=== PATIENT | female | born 1950 | race Caucasian/White ===

== ENCOUNTER 2017-07-25 05:28 | Inpatient (IN) | payer OTHER ==
[2017-07-18 12:20] LABS: HEMATOCRIT 36.7 % (37.0-47.0); HEMOGLOBIN 12.7 gm/dL (12.0-15.0); MCH 30.7 pg (26.0-34.0); MCHC 34.5 g/dL (28.0-37.0); MCV 89.2 fL (80.0-100.0); RBC 4.12 mil/uL (4.20-5.00); RDW 12.9 % (10.5-14.5); WBC 8.2 thou/uL (4.0-11.0)
[2017-07-18 12:22] LABS: URINE BILIRUBIN NEGATIVE (Negative); URINE BLOOD NEGATIVE (Negative); URINE CLARITY CLEAR; URINE COLOR YELLOW; URINE GLUCOSE-RANDOM* NEGATIVE (Negative); URINE KETONES NEGATIVE (Negative); URINE LEUKOCYTES-REFLEX NEGATIVE (Negative); URINE NITRITE-REFLEX NEGATIVE (Negative); URINE PROTEIN (DIPSTICK) NEGATIVE (Negative); URINE SPECIFIC GRAVITY <= 1.005 (1.005-1.035); URINE UROBILINOGEN 0.2 E.U./dl (0.2-1.0)
[2017-07-18 12:30] LABS: ALBUMIN 4.1 g/dL (3.4-5.0); CALCIUM 9.8 mg/dL (8.5-10.1); CREATININE 0.6 mg/dL (0.6-1.0); POTASSIUM 4.3 mmol/L (3.5-5.1); PROTIME 9.7 Seconds (9.3-11.4)
[2017-07-25] VITALS (7 sets, daily range): BP systolic 126–158; BP diastolic 65–83
[~2017-07-25] VITALS: Ht 160 cm; Wt 63.5 kg
--- NOTE | ~2017-07-25 | O ---
[facility] [place] [address] OPERATIVE REPORT Name: HALLIE GONZALEZ Room #: 412-P [facility] IN M.R.#: [id number] Admission: 07/25/17 Attend Phys: Edmundo Pinzon MD Discharge: 07/27/17 Date of : 46 Report #: [id number] THIS REPORT FOR: //name// CC: Martha Rick Pinzon DATE OF SERVICE: 07/25/2017 PREOPERATIVE DIAGNOSIS: Right hip osteoarthritis. POSTOPERATIVE DIAGNOSIS: Right hip osteoarthritis. PROCEDURE: Right total hip arthroplasty. SURGEON: Edmundo Pinzon MD SOCIAL MEDIA DEVELOPER: Aubrie Tariq PA-C ANESTHESIA: General endotracheal. INDICATION FOR ASSISTANCE: Throughout the case extensive retraction and manipulation of the hip was required including reduction and dislocation of the hip. This was afforded to me by my diagnostic assistant. IMPLANTS: [employer] size 12 high offset Synergy press fit stem, a size 54 R3 acetabular cup with 1 acetabular screw, size 36+4 cobalt chrome head and 1 Accord cable. ESTIMATED BLOOD LOSS: 150 mL. COMPLICATIONS: Include intraoperative greater trochanter fracture fixed with the Accord cable. CONDITION UPON LEAVING THE OPERATING ROOM: Stable. INDICATIONS FOR PROCEDURE: The patient is a 66-year-old female with severe right hip osteoarthritis. She had failed conservative treatment for this and after discussion with her, she elected for right total hip arthroplasty. DESCRIPTION OF PROCEDURE: Risks, benefits, alternatives, complications were discussed in detail with the patient including but not limited to risk of anesthesia, risk of damage to nerves, arteries, blood vessels, risk for infection, bleeding, risk for continued hip pain, leg length discrepancy, instability and need for reoperation. Informed consent was obtained from the patient. Right hip was appropriately marked in the preoperative holding area. She was brought to the operating room and placed in supine position on the [address] [address] OPERATIVE REPORT Name: HALLIE GONZALEZ Room #: 412-P [facility] IN M.R.#: [id number] Admission: 07/25/17 Attend Phys: Edmundo Pinzon MD Discharge: 07/27/17 Date of : 46 Report #: [id number] operating room table. General endotracheal anesthesia was induced without complication. IV Ancef was given for preoperative antibiotic. She was placed in the left lateral decubitus position with the right hip uppermost. Right hip and lower extremity were prepped and draped in normal sterile fashion. Timeout was performed properly identifying the patient and procedure as well as the instrumentation and implants. All in the operating room were in agreement. Standard posterior approach to the hip was made with 10 blade through the skin. Dissection was taken down to the fascia with Bovie cautery. Feliciano elevator was used to clean the fascia. A fresh #10 blade was used to make a fascial incision. This was taken proximally and distally with curved De La Rosa scissor. Charnley retractor was placed. Trochanteric bursa was taken down with Bovie. Piriformis tendon was identified, tagged and taken down with Bovie. Capsulotomy was made and capsular ends were tagged for later repair. Hip was dislocated. There was severe osteoarthritic change of the femoral head with complete loss of articular cartilage. Femoral neck cut was made 1 cm proximal to lesser trochanter based on preoperative templating. Femoral head was removed. Deep acetabular retractors were placed and the labrum was removed sharply. Pulvinar was removed with Bovie cautery. Acetabulum was then sequentially reamed up to a size 54, at which point there was excellent bleeding cancellous bone. A size 53 trial was placed to have a good fit. A final size 54 R3 acetabular cup was placed. One acetabular screw was placed for backup fixation. Polyethylene liner for 36 head was placed. Attention was turned to the femur. This was reamed and broached up to a size 12 at which point a size 12 broach was stable. This was trialed with a high offset neck and a 36+0 head. Hip was reduced, taken through range of motion, found to be stable, found to have short leg length on the right compared to the left and it was felt this could be made up for in the final implant. Broach was removed and a size 12 high offset Synergy stem was placed. Upon final seating of the stent, there was noted to be a small crack in the greater trochanter. The stem was removed and a single Accord cable was placed around the proximal femur and tightened. The stem was then placed back down and seated. This was trialed with a 36+4 head. Hip was reduced, taken through range of motion, found to be stable, found to have equal leg lengths. Hip dislocated again and a final size 36+4 cobalt chrome head was placed. Hip was reduced, taken through range of motion, found to be stable, found to have equal leg lengths. Wound was thoroughly irrigated with normal saline. Periarticular injection consisting of morphine, ropivacaine, epinephrine and Toradol was placed in the hip joint capsule. A gram of vancomycin was placed to the hip joint. The capsule and piriformis were repaired with 0 FiberWire. Fascia was closed with 0 Vicryl, skin was closed with 2-0 Vicryl, 3-0 Monocryl. Dermabond and a CAR[place] dressing was applied. The patient tolerated this procedure well and went to recovery room under care of anesthesia postoperatively. <ELECTRONICALLY SIGNED> By: Edmundo Pinzon MD 08/02/17 0728 [id number] Edmundo Pinzon MD /nt
--- NOTE | ~2017-07-25 | EKG ---
[place] [address] [facility] [place] [address] ELECTROCARDIOGRAM REPORT Name: CARLOSHALLIE Landers Room #: PRE IN ..#: [id number] Admission: Attend Phys: Edmundo Pinzon MD Discharge: Date of : 46 Report #: [id number] THIS REPORT FOR: //name// [facility] Test Date: 2017-07-18 Test Time: 11:49:28 Pat Name: HALLIE GONZALEZ Department: Room: Gender: F [employer] Product Development Manager: Matthew CAI : 1950 Requested By: Edmundo Pinzon Order Number: [id number] MD: Ashish Patiño Measurements Intervals [place] Rate: 80 P: 56 RI: 135 QRS: 35 QRSD: 100 T: 11 QT: 381 QTc: 440 Interpretive Statements Sinus rhythm Probable left atrial enlargement Left ventricular hypertrophy No previous ECG available for comparison Electronically Signed On 07-18-2017 16:18:48 CUSTOMER ENGINEER by Ashish Patiño [email or web address] <ELECTRONICALLY SIGNED> By: Ashish Patiño MD 07/18/17 1618 1149 [id number] Ashish Patiño MD /SOFÍA
[~2017-07-25 05:28] MED LIST: COZAAR100 MG PO; IBUPROFEN 600600 M1 PO; NORVASC2.5 M1 PO
[2017-07-26 01:45] VITALS: BP 121/61
[2017-07-26 02:00] VITALS: BP 123/77
[2017-07-26 05:19] VITALS: BP 130/71
[2017-07-26 08:26] LABS: HEMATOCRIT 27.3 % (37.0-47.0); HEMOGLOBIN 9.4 gm/dL (12.0-15.0); MCH 30.6 pg (26.0-34.0); MCHC 34.3 g/dL (28.0-37.0); MCV 89.2 fL (80.0-100.0); RBC 3.06 mil/uL (4.20-5.00); RDW 13.1 % (10.5-14.5); WBC 11.9 thou/uL (4.0-11.0)
[2017-07-26 10:27] VITALS: BP 153/74
[2017-07-26 20:00] VITALS: BP 134/50
[2017-07-27 03:52] LABS: HEMATOCRIT 28.3 % (37.0-47.0); HEMOGLOBIN 9.7 gm/dL (12.0-15.0); MCH 30.8 pg (26.0-34.0); MCHC 34.3 g/dL (28.0-37.0); MCV 89.6 fL (80.0-100.0); RBC 3.16 mil/uL (4.20-5.00); RDW 12.8 % (10.5-14.5); WBC 8.2 thou/uL (4.0-11.0)
[2017-07-27 04:00] VITALS: BP 162/80
[2017-07-27 07:39] VITALS: BP 149/69
[2017-07-27 13:54] VITALS: BP 149/69
== END 2017-07-27 14:20 | disposition home or self-care (01) | DRG 470 ==
LOC: PRE 05:28 → TBA 05:39 → 4N 05:39 → PRE 10:36 → 4N 17:27 → ENTRNSPT 07-27 14:17 → 4N 07-27 14:20 → EDTRNSPTSTS 07-27 14:23
PROVIDERS: Orthopaedic Surgery
PROC: 0SR902A Replacement of Right Hip Joint with Metal on Polyethylene Synthetic Substitute, Uncemented, Open Approach (ICD-10-PCS; principal; 2017-07-25)
DX: M16.11 Unilateral primary osteoarthritis, right hip (principal)
CPT/HCPCS: 10790; 50010; 50101; 50382; 50414; 51771; 53000; 53078; 53368; 54118; 56524; 56527; 56528; 56530; 57095; 62110; 62900; 70005